=== PATIENT | male | born 1975 | race Caucasian/White ===

== ENCOUNTER 2022-06-22 11:00 | Outpatient (RCR) | payer OTHER, SELFPAY | END 2022-07-11 23:59 | disposition home or self-care (01) | LOC: APT 11:00 | PROVIDERS: Visit Provider Family Medicine | DX: M72.2 Plantar fascial fibromatosis (principal) | CPT/HCPCS: 97110; 97140; 97161 ==

== ENCOUNTER 2022-07-12 06:00 | Outpatient (RCR) | payer OTHER, SELFPAY | END 2022-08-11 23:59 | disposition home or self-care (01) | LOC: APT 06:00 | PROVIDERS: Visit Provider Family Medicine | DX: M72.2 Plantar fascial fibromatosis (principal) | CPT/HCPCS: 97110; 97112; 97140; 97530 ==

== ENCOUNTER 2022-08-12 06:00 | Outpatient (RCR) | payer OTHER, SELFPAY | END 2022-09-08 23:59 | disposition home or self-care (01) | LOC: APT 06:00 | PROVIDERS: Visit Provider Family Medicine | DX: M79.604 Pain in right leg (principal); M79.605 Pain in left leg; M51.36 Other intervertebral disc degeneration, lumbar region | CPT/HCPCS: 97110; 97140; 97161 ==

== ENCOUNTER 2022-08-12 06:00 | Outpatient (RCR) | payer OTHER, SELFPAY | END 2022-09-08 23:59 | disposition home or self-care (01) | LOC: APT 06:00 | PROVIDERS: Visit Provider Family Medicine | DX: M72.2 Plantar fascial fibromatosis (principal) | CPT/HCPCS: 97110; 97112; 97140 ==

== ENCOUNTER 2022-09-09 06:00 | Outpatient (RCR) | payer OTHER, SELFPAY | END 2022-10-09 23:59 | disposition home or self-care (01) | LOC: APT 06:00 | PROVIDERS: Visit Provider Family Medicine | DX: M79.604 Pain in right leg (principal); M79.605 Pain in left leg; M51.36 Other intervertebral disc degeneration, lumbar region | CPT/HCPCS: 97110; 97112; 97140; 97530 ==

== ENCOUNTER 2022-09-09 06:00 | Outpatient (RCR) | payer OTHER, SELFPAY | END 2022-10-09 23:59 | disposition home or self-care (01) | LOC: APT 06:00 | PROVIDERS: Visit Provider Family Medicine | DX: M72.2 Plantar fascial fibromatosis (principal) | CPT/HCPCS: 97110; 97112; 97530 ==

== ENCOUNTER 2022-10-10 06:00 | Outpatient (RCR) | payer OTHER, SELFPAY | END 2022-11-08 23:59 | disposition home or self-care (01) | LOC: APT 06:00 | PROVIDERS: Visit Provider Family Medicine | DX: M72.2 Plantar fascial fibromatosis (principal) | CPT/HCPCS: 97110; 97112; 97140; 97530 ==

== ENCOUNTER 2023-01-04 07:54 | Emergency (ER) | payer OTHER, SELFPAY ==
[2023-01-04] VITALS (58 sets, daily range): BP systolic 111–160; BP diastolic 71–107; PULSE 55–90; RESP 13–31; TEMP 36.8; O2SAT 94–100; BMI 32.5
--- NOTE | 2023-01-04 08:02 | ECG_ITS ---
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 Measurements Intervals [place] Rate: 75 P: 40 WI: 139 QRS: 43 QRSD: 97 T: 39 QT: 353 QTc: 396 Interpretive Statements SINUS RHYTHM No previous ECG available for comparison Electronically Signed On 01-04-2023 17:23:56 CDT by Julián Hsu M.D. [id number]
--- NOTE | 2023-01-04 08:02 | ECG_ITS ---
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 Measurements Intervals [place] Rate: 75 P: 40 MS: 139 QRS: 43 QRSD: 97 T: 39 QT: 353 QTc: 396 Interpretive Statements SINUS RHYTHM No previous ECG available for comparison Electronically Signed On 01-04-2023 17:23:59 CDT by Julián Hsu M.D. [id number] f
--- NOTE | 2023-01-04 08:19 | XR_ITS ---
WS: [id number] Exam: XR chest 1V portable [id number] Date/Time of Exam: 01/04/2023 8:19 AM Reason For Exam: chest pain No priors. Findings: The lungs are clear and fully expanded. Costophrenic angles are sharp. No infiltrates. Bronchovascula r relief appears normal. Cardiac silhouette is unremarkable. Bony elements are intact. XR/XR chest 1V portable [id number] IMPRESSION: Unremarkable chest radiograph.
--- NOTE | 2023-01-04 08:20 | W.ED.CHESTPA ---
HPI - Chest Pain General: Chief Complaint: Chest Pain Stated Complaint: B/P high doesn't feel right Time Seen by Provider: 01/04/23 08:05 Source: patient Mode of arrival: ambulatory History of Present Illness: 47-year-old male presents emergency room with complaints of chest pain. Intermittently had chest pain off and on the last few days he woke up this morning around 2 or 3 AM with chest pain he checked his blood pressure was elevated seems to be a bit more on the right side he could infection with palpation along the right side of the sternum. He did not have any shortness of breath but he was mildly nauseous. Through the rest of the evening it kept him awake and around 6 AM it was still bothering and he came into the emergency room to be evaluated. He has no known history of coronary artery disease does have a history of hypertension. He does smoke he is not diabetic. MD complaint: chest discomfort Onset (ago): day(s) Timing of current episode: episodic Prior episodes: Yes Onset: during rest Pain location: right chest Pain radiation: none Severity: moderate Quality: sharp Exacerbating factors: palpation Associated symptoms: Deny abdominal pain, diaphoresis, dyspnea, fever(s), leg edema, nausea, palpitations, sense of impending doom, syncope or vomiting Treatment prior to arrival: none Review of Systems Const: Denies: fever(s), chills or diaphoresis ENMT: Denies: throat pain, ear or mastoid pain, nasal discharge or nasal congestion Card: Reports: chest pain; Denies: palpitations or syncope Resp: Denies: dyspnea GI: Denies: abdominal pain, nausea or vomiting : Denies: flank pain, dysuria, urinary frequency or urinary urgency Musc: Denies: neck pain or back pain Skin/Breast: Denies: rash or pruritus Physical Exam Const: GENERAL APPEARANCE: cooperative and comfortable ORIENTATION/CONSCIOUSNESS: Yes awake, Yes oriented to person, Yes oriented to place and Yes oriented to time HENMT: COMMON NORMALS: normocephalic, atraumatic and hearing grossly normal bilaterally HEAD & SCALP: normocephalic and atraumatic Chest: OTHER: Tenderness palpation on the right sternal border Resp: COMMON NORMALS: normal respiratory effort, No retractions, No use of accessory muscles and clear to auscultation bilaterally AUSCULTATION: clear to auscultation bilaterally Cardio: COMMON NORMALS: regular rate, regular rhythm and No murmurs present (Cardio) RATE: regular rate RHYTHM: regular rhythm GI: COMMON NORMALS: Soft to palpation and No hepatosplenomegaly present AUSCULTATION: Yes normoactive bowel sounds PALPATION: Yes Soft to palpation, No Tenderness to palpation present (GI), No Guarding due to palpation present (GI) and Yes No hepatosplenomegaly present Extremity: COMMON NORMALS: normal to inspection, capillary refill normal, no clubbing, cyanosis or edema, no calf tenderness and no pedal edema Neuro: SENSORIUM/ORIENTATION: Yes oriented to person, Yes oriented to place and Yes oriented to time Skin: COMMON NORMALS: no rashes or lesions noted GENERAL SKIN EXAM: no rashes or lesions noted Course Vital Signs: Vital signs: Vital Signs Temperature 98.2 F 01/04/23 07:59 Pulse Rate 57 L 01/04/23 11:40 Respiratory Rate 19 H 01/04/23 11:40 Blood Pressure 115/80 01/04/23 11:40 Pulse Oximetry 96 01/04/23 11:40 Oxygen Delivery Me thod Room Air 01/04/23 11:35 MDM - Chest Pain Medical Decision Making EKG cardiac symptoms reviewed no acute changes cardiac enzymes unremarkable. Discharge patient on set up graded exercise test as patient take aspirin daily return if has further problems. No symptoms on arrival no symptoms at time of discharge Medical Records I reviewed the patient's medical records. Lab Data I reviewed the patient's lab results. 01/04/23 08:11 01/04/23 08:44 Radiology Impressions Chest X-Ray 01/04/23 08:19 IMPRESSION: Unremarkable chest radiograph. Laboratory Results WBC 10.1 10^3/uL (4.0-10.0) H 01/04/23 08:11 RBC 4.33 10^6/uL (4.1-5.3) 01/04/23 08:11 Hgb 14.2 g/dL (11.7-16.6) 01/04/23 08:11 Hct 43.0 % (42.0-52.0) 01/04/23 08:11 MCV 99.3 fl (80-94) H 01/04/23 08:11 MCH 32.8 pg (28.0-34.0) 01/04/23 08:11 MCHC 33.0 g/dL (30.0-36.0) 01/04/23 08:11 RDW 12.3 % (12.1-15.1) 01/04/23 08:11 Plt Count 254 10^3/cmm (130-400) 01/04/23 08:11 MPV 10.0 fL (7.4-10.4) 01/04/23 08:11 Neut % (Auto) 60.5 % 01/04/23 08:11 Lymph % (Auto) 28.7 % 01/04/23 08:11 [place] % (Auto) 7.9 % 01/04/23 08:11 Eos % (Auto) 1.9 % 01/04/23 08:11 Baso % (Auto) 0.5 % 01/04/23 08:11 Neut # (Auto) 6.09 10^3/uL (1.8-7.7) 01/04/23 08:11 Lymph # (Auto) 2.9 10^3/uL (0.8-4.8) 01/04/23 08:11 [place] # (Auto) 0.8 10^3/uL (0.2-0.9) 01/04/23 08:11 Eos # (Auto) 0.2 10^3/uL (0.0-0.8) 01/04/23 08:11 Baso # (Auto) 0.1 10^3/uL (0.0-0.1) 01/04/23 08:11 Nucleated RBC % (auto) 0 % 01/04/23 08:11 Nucleated RBCs # 0.0 /100WBC 01/04/23 08:11 Sodium 140 mmol/L (136-145) 01/04/23 08:44 Potassium 3.9 mmol/L (3.5-5.1) 01/04/23 08:44 Chloride 109 mmol/L (98-107) H 01/04/23 08:44 Carbon Dioxide 22 mmol/L (22-29) 01/04/23 08:44 Anion Gap 12.9 (5-19) 01/04/23 08:44 BUN 12 mg/dL (6-20) 01/04/23 08:44 Creatinine 1.0 mg/dL (0.7-1.2) 01/04/23 08:44 GFR Calculation 80.8 mL/min (90-130) L 01/04/23 08:44 Glucose 91 mg/dL (65-115) 01/04/23 08:44 Calculated Osmolality 289 mOsm/kg (285-295) 01/04/23 08:44 Calcium 9.3 mg/dL (8.5-10.5) 01/04/23 08:44 Total Bilirubin 0.2 mg/dL (0.15-1.2) 01/04/23 08:44 AST 19 U/L (0-40) 01/04/23 08:44 ALT 21 U/L (0-41) 01/04/23 08:44 Alkaline Phosphatase 57 U/L (40-130) 01/04/23 08:44 Troponin T Baseline 6 ng/L (0-15) 01/04/23 08:44 Troponin T 120 Minute 6.00 ng/L (0-15) 01/04/23 10:33 Delta Troponin T 0 ABS# (0-10) 01/04/23 10:33 Total Protein 6.4 g/dL (6.6-8.7) L 01/04/23 08:44 Albumin 4.2 g/dL (3.5-5.2) 01/04/23 08:44 Globulin 2.2 g/dL (1.3-4.6) 01/04/23 08:44 Discharge Plan Discharge Patient Disposition: Home Clinical Impression: Atypical chest pain Condition: Stable Prescriptions: New pantoprazole 40 mg tablet,delayed release (DR/EC) 40 mg PO DAILY 28 Days Qty: 30 0RF aspirin 81 mg tablet,delayed release (DR/EC) 81 mg PO DAILY Qty: 30 0RF No Action atorvastatin 10 mg tablet 10 mg PO QPM lisinopril 20 mg tablet 100 mg PO DAILY gabapentin 300 mg capsule 300 mg PO DAILY fenofibrate 160 mg Tablet 160 mg PO DAILY Discharge Orders: Discharge ED (Routine); Ordered 01/04/23 Ordered By: Jp Wetzel Referrals: Renato Garg [Primary Care Provider] - Discharge Diet: Usual diet Discharge Activity: Increase activity as tolerated Patient Instructions: Opioid Safety, Pain Management Activity Restrictions/Additional Instructions: You are seen today for atypical chest pain recommend you take a baby aspirin daily and start pantoprazole 40 mg once daily. Case management make arrangements for an outpatient graded exercise stress test Coding Level of Care Code ED Nitrocellulose Maker for Ty Guzman
[2023-01-04 08:30] LABS: Basophils # 0.1 10^3/uL (0.0-0.1); Basophils % 0.5 %; Eosinophils # 0.2 10^3/uL (0.0-0.8); Eosinophils % 1.9 %; Hemoglobin 14.2 g/dL (11.7-16.6); Lymphocytes # 2.9 10^3/uL (0.8-4.8); Lymphocytes % 28.7 %; Mean Corpuscular Hemoglobin 32.8 pg (28.0-34.0); Mean Corpuscular Volume 99.3 fl (80-94); Monocytes # 0.8 10^3/uL (0.2-0.9); Monocytes % 7.9 %; Neutrophils # 6.09 10^3/uL (1.8-7.7); Neutrophils % 60.5 %; Nucleated Red Blood Cells % 0 %; Platelet Count 254 10^3/cmm (130-400); Red Blood Count 4.33 10^6/uL (4.1-5.3); Red Cell Distribution Width 12.3 % (12.1-15.1); White Blood Count 10.1 10^3/uL (4.0-10.0)
[2023-01-04] MEDS: aspirin 81 mg Chew Tablet 324 MG PO (08:44)
[2023-01-04 09:10] LABS: Alanine Aminotransferase 21 U/L (0-41); Albumin Level 4.2 g/dL (3.5-5.2); Alkaline Phosphatase 57 U/L (40-130); Anion Gap 12.9 (5-19); Aspartate Amino Transferase 19 U/L (0-40); Blood Urea Nitrogen 12 mg/dL (6-20); Calcium 9.3 mg/dL (8.5-10.5); Carbon Dioxide 22 mmol/L (22-29); Chloride 109 mmol/L (98-107); Globulin 2.2 g/dL (1.3-4.6); Glomerular Filtration Rate 80.8 mL/min (90-130); Glucose 91 mg/dL (65-115); Osmolality Calculated 289 mOsm/kg (285-295); Potassium 3.9 mmol/L (3.5-5.1); Sodium 140 mmol/L (136-145); Total Bilirubin 0.2 mg/dL (0.15-1.2); Total Protein 6.4 g/dL (6.6-8.7)
[2023-01-04 09:12] LABS: Troponin(5th) Baseline 6 ng/L (0-15)
--- NOTE | 2023-01-04 10:30 | ECG_ITS ---
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 Measurements Intervals [place] Rate: 73 P: 37 MN: 151 QRS: 40 QRSD: 95 T: 29 QT: 356 QTc: 394 Interpretive Statements SINUS RHYTHM Compared to ECG 01/04/2023 08:02:24 No significant changes Electronically Signed On 01-04-2023 17:26:59 CDT by Julián Hsu M.D. [email or web address] medical [id number]
[2023-01-04 11:17] LABS: Troponin 5 2HR Delta 0 ABS# (0-10)
--- NOTE | 2023-01-04 16:10 | PC.SOCIAL ---
Addendum entered by Nisa Damon 01/22/23 08:13: innovation manager received the following message from centralized scheduling regarding stress test: he was called to scheduled [facility] told us [facility] and [facility] didn?t want it Original Note: Outpatient Graded Exercise Stress test Orders faxed to cent. scheduling at this time.
== END 2023-01-04 13:09 | disposition home or self-care (01) ==
PROVIDERS: Emergency Provider Family Medicine; PCP Family Medicine
DX: R07.89 Other chest pain (principal)
CPT/HCPCS: 71045; 80053; 84484; 85025; 93005; 99285

== ENCOUNTER 2024-02-27 01:49 | Emergency (ER) | payer OTHER, SELFPAY ==
[2024-02-27 02:04] VITALS: BP 155/105; PULSE 77; RESP 20; TEMP 36.6; O2SAT 98; BMI 33.2
--- NOTE | 2024-02-27 02:09 | ECG_ITS ---
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 Measurements Intervals [place] Rate: 68 P: 46 RI: 149 QRS: 19 QRSD: 98 T: 45 QT: 361 QTc: 384 Interpretive Statements SINUS RHYTHM POSSIBLE RIGHT VENTRICULAR CONDUCTION DELAY [RSR (QR) IN V1/V2] Compared to ECG 01/04/2023 10:30:18 No significant changes Electronically Signed On 02-27-2024 20:08:28 CDT by Julián Hsu M.D. [id number]
[2024-02-27 02:49] VITALS: BP 143/94; PULSE 69; O2SAT 97
--- NOTE | 2024-02-27 02:58 | CTR_ITS ---
PROCEDURE INFORMATION: Exam: CT Head Without Contrast Exam date and time: 02/27/2024 3:15 AM Age: 49 years old Clinical indication: Pain; Patient HX: C/O headache TECHNIQUE: Imaging protocol: Computed tomography of the head without contrast. Radiation optimization: All CT scans at this facility use at least one of these dose optimization techniques: automated exposure control; mA and/or kV adjustment per patient size (includes targeted exams where dose is matched to clinical indication); or iterative reconstruction. COMPARISON: No relevant prior studies available. RADIATION DOSE METRICS: Total DLP (mGy-cm): 1120.78 FINDINGS: Brain: Normal. No hemorrhage. Unremarkable white matter. No mass effect. Cerebral ventricles: No ventriculomegaly. Paranasal sinuses: Visualized sinuses are unremarkable. No fluid levels. Mastoid air cells: Visualized mastoid air cells are well aerated. Bones: Unremarkable. No acute fracture. Soft tissues: Unremarkable. CT/CT head wo con* [id number] IMPRESSION: No acute intracranial abnormality.
[2024-02-27] MEDS: metoclopramide 5 mg/mL SDV 2 mL 10 MG IVP (03:06)
[2024-02-27 03:07] LABS: Basophils % 0.6 %; Eosinophils # 0.1 10^3/uL (0.0-0.8); Hematocrit 42.4 % (37-53); Lymphocytes # 2.6 10^3/uL (0.8-4.8); Lymphocytes % 37.2 %; Mean Corpuscular HGB Conc 33.3 g/dL (30-55); Mean Corpuscular Hemoglobin 32.9 pg (27-33); Mean Corpuscular Volume 99.1 fl (82-101); Monocytes # 0.7 10^3/uL (0.2-0.9); Monocytes % 10.5 %; Neutrophils # 3.39 10^3/uL (1.8-7.7); Neutrophils % 49.3 %; Nucleated Red Blood Cells % 0 %; Platelet Count 236 10^3/cmm (157-399); Red Blood Count 4.28 10^6/uL (3.85-5.65); Red Cell Distribution Width 12.3 % (12.1-15.1); White Blood Count 6.88 10^3/uL (3.29-11.43)
[2024-02-27 03:09] VITALS: RESP 20
[2024-02-27] MEDS: morphine 4 mg/mL SDV 1 mL IVP (03:09)
[2024-02-27] MEDS: ketorolac 30 mg/mL INJ IVP (03:10)
[2024-02-27 03:11] LABS: Charge for UA Resulting for Rev
[2024-02-27 03:14] LABS: Bilirubin Urine Negative (Negative); Blood Urine Negative (Negative); Glucose Urine UA Negative (Normal); Ketones Urine Negative (Negative); Leukocyte Esterase Urine Negative (Negative); Nitrate Urine Negative (Negative); Protein Urine Negative (Negative); Specific Gravity, Urine 1.008 (1.005-1.030); Urine Appearance Clear (CLEAR); Urine Color Yellow (Yellow)
[2024-02-27 03:16] LABS: Bacteria Urine None Seen /hpf; Hyaline Casts Urine 0-4 /lpf; RBC Urine 0-2 /hpf (0-2); Squamous Epithelial Cell Urine 0-5 /hpf (0-5); WBC Urine 0-5 /hpf (0-5)
[2024-02-27 03:18] LABS: INR 0.93 (0.8-1.2)
[2024-02-27 03:19] LABS: Partial Thromboplastin Time 28.2 SECONDS (23.9-36.7); Troponin(5th) Baseline < 6 ng/L (0-15)
[2024-02-27 03:22] LABS: Alanine Aminotransferase 32 U/L (0-41); Albumin Level 4.4 g/dL (3.5-5.2); Alkaline Phosphatase 72 U/L (40-130); Chloride 105 mmol/L (98-107); Potassium 4.1 mmol/L (3.5-5.1); Sodium 141 mmol/L (136-145)
[2024-02-27 03:26] LABS: Aspartate Amino Transferase 24 U/L (0-40); Blood Urea Nitrogen 14 mg/dL (6-20); Calcium 9.5 mg/dL (8.5-10.5); Carbon Dioxide 24 mmol/L (22-29); Creatinine Clr Calc Pharmacy 97.9643; Globulin 2.8 g/dL (1.3-4.6); Glomerular Filtration Rate 64.9 mL/min (90-130); Glucose 108 mg/dL (65-115); Osmolality Calculated 291 mOsm/kg (285-295); Total Bilirubin 0.3 mg/dL (0.15-1.2); Total Protein 7.1 g/dL (6.6-8.7)
[2024-02-27 04:32] VITALS: BP 129/92; PULSE 62; O2SAT 97
--- NOTE | 2024-02-27 04:38 | ED_ITS ---
HPI - Headache 2 General: Chief Complaint: Headache Stated Complaint: Headache Time Seen by Provider: 02/27/24 02:22 History of Present Illness: 49-year-old male with a history of hyper tension. He presents with a headache. He states that the last 3 or 4 times he has had intercourse, he has gotten an intense headache. Locates the headache to the crown of his scalp and skull. No vision blindness, no weakness, no trouble with language, no fever. Headache is somewhat improved from prior. He noticed that his blood pressure was high, so he took his lisinopril which she normally takes at night. His blood pressure was still 150 systolic, and he still had a headache 3 hours later, so he took another dose of 10 mg of lisinopril. Related Data Home Medications Medication Instructions Recorded Confirmed atorvastatin 10 mg tablet 10 mg PO QPM 01/04/23 01/04/23 fenofibrate 160 mg tablet 160 mg PO DAILY 01/04/23 01/04/23 gabapentin 300 mg capsule 300 mg PO DAILY 01/04/23 01/04/23 lisinopril 20 mg tablet 100 mg PO DAILY 01/04/23 01/04/23 Previous Rx's Medication Instructions Recorded aspirin 81 mg tablet,delayed 81 mg PO DAILY #30 tabs 01/04/23 release Course 2 Vital Signs: Vital signs: Vital Signs Temperature 98 F 02/27/24 02:04 Pulse Rate 62 02/27/24 04:32 Respiratory Rate 20 H 02/27/24 03:09 Blood Pressure 129/92 02/27/24 04:32 Pulse Oximetry 97 02/27/24 04:32 MDM - Headache Medical Decision Making Head CT is negative. CBC BMP normal. EKG shows a sinus rhythm with a rate of 70. Normal intervals, no ST wave changes. Normal axis. It is timed 0209. Headache is improved. He will be allowed home. Natural history of exertional headache explained to the patient and his . Lab Data 02/27/24 02:27 02/27/24 02:[address] 02/27/24 02:58 IMPRESSION: No acute intracranial abnormality. Laboratory Results WBC 6.88 10^3/uL (3.29-11.43) 02/27/24 02:27 RBC 4.28 10^6/uL (3.85-5.65) 02/27/24 02:27 Hgb 14.10 g/dL (11.27-16.99) 02/27/24 02: Hct 42.4 % (37-53) 02/27/24 02: MCV 99.1 fl (82-101) 02/27/24 02: MCH 32.9 pg (27-33) 02/27/24 02: MCHC 33.3 g/dL (30-55) 02/27/24 02: RDW 12.3 % (12.1-15.1) 02/27/24 02: Plt Count 236 10^3/cmm (157-399) 02/27/24 02: MPV 10.0 fL (7.4-10.4) 02/27/24 02: Neut % (Auto) 49.3 % 02/27/24 02: Lymph % (Auto) 37.2 % 02/27/24 02: [place] % (Auto) 10.5 % 02/27/24 02: Eos % (Auto) 2.0 % 02/27/24 02: Baso % (Auto) 0.6 % 02/27/24 02: Neut # (Auto) 3.39 10^3/uL (1.8-7.7) 02/27/24 02: Lymph # (Auto) 2.6 10^3/uL (0.8-4.8) 02/27/24 02: [place] # (Auto) 0.7 10^3/uL (0.2-0.9) 02/27/24 02: Eos # (Auto) 0.1 10^3/uL (0.0-0.8) 02/27/24 02: Baso # (Auto) 0.0 10^3/uL (0.0-0.1) 02/27/24 02: Nucleated RBC % (auto) 0 % 02/27/24: Nucleated RBCs # 0.0 /100WBC 02/27/24 02: PT 12.80 SECONDS (12.1-14.9) 02/27/24 02: INR 0.93 (0.8-1.2) 02/27/24 02: APTT 28.2 SECONDS (23.9-36.7) 08/18/24 02:27 Sodium 141 mmol/L (136-145) 02/27/24 02:27 Potassium 4.1 mmol/L (3.5-5.1) 02/27/24 02: Chloride 105 mmol/L (98-107) 02/27/24 02:27 Carbon Dioxide 24 mmol/L (22-29) 02/27/24 02: Anion Gap 15.0 (5-19) 02/27/24 02:27 BUN 14 mg/dL (6-20) 02/27/24 02:27 Creatinine 1.2 mg/dL (0.7-1.2) 02/27/24 02: GFR Calculation 64.9 mL/min (90-130) L 02/27/24 02: Glucose 108 mg/dL (65-115) 02/27/24 02: Calculated Osmolality 291 mOsm/kg (285-295) 02/27/24 02: Calcium 9.5 mg/dL (8.5-10.5) 02/27/24 02: Total Bilirubin 0.3 mg/dL (0.15-1.2) 02/27/24 02: AST 24 U/L (0-40) 02/27/24 02: ALT 32 U/L (0-41) 02/27/24 02: Alkaline Phosphatase 72 U/L (40-130) 02/27/24 02: Troponin T Baseline < 6 ng/L (0-15) 02/27/24 02: Total Protein 7.1 g/dL (6.6-8.7) 02/27/24 02: Albumin 4.4 g/dL (3.5-5.2) 02/27/24 02: Globulin 2.8 g/dL (1.3-4.6) 02/27/24 02:27 Urine Color Yellow (Yellow) 02/27/24 02: Urine Appearance Clear (CLEAR) 02/27/24 02: Urine pH 6.0 (5-7) 02/27/24 02: Ur Specific [place] 1.008 (1.005-1.030) 02/27/24 02: Urine Protein Negative (Negative) 02/27/24 02: Urine Glucose (UA) Negative (Normal) 02/27/24 02:27 Urine Ketones Negative (Negative) 02/27/24 02:27 Urine Blood Negative (Negative) 02/27/24 02:27 Urine Nitrate Negative (Negative) 02/27/24 02:27 Urine Bilirubin Negative (Negative) 02/27/24 02:27 Urine Urobilinogen 1.0 mg/dL (Negative) 02/27/24 02:27 Ur Leukocyte Esterase Negative (Negative) 02/27/24 02:27 Urine RBC 0-2 /hpf (0-2) 02/27/24 02:27 Urine WBC 0-5 /hpf (0-5) 02/27/24 02:27 Ur Squamous Epith Cells 0-5 /hpf (0-5) 02/27/24 02:27 Amorphous Sediment Not Reportable 02/27/24 02:27 Urine Bacteria None seen /hpf (NONE) 02/27/24 02:27 Hyaline Casts 0-4 /lpf H 02/27/24 02:27 All radiology interpretation(s) finalized by discharge Discharge Plan Discharge Patient Disposition: Home Clinical Impression: Exertional headache Condition: Stable Prescriptions: No Action atorvastatin 10 mg tablet 10 mg PO QPM lisinopril 20 mg tablet 100 mg PO DAILY gabapentin 300 mg capsule 300 mg PO DAILY fenofibrate 160 mg Tablet 160 mg PO DAILY aspirin 81 mg tablet,delayed release (DR/EC) 81 mg PO DAILY Qty: 30 0RF Discharge Orders: Discharge ED (Routine); Ordered 02/27/24 Ordered By: Nikita Buckner Referrals: Neha Miranda MD [Primary Care Provider] - 4-7 days Patient Instructions: Acute Headache (ED), Opioid Safety, Pain Management Activity Restrictions/Additional Instructions: Increase your lisinopril dosage to 20 mg daily. Take your blood pressure twice daily. Report numbers to your doctor. Dose adjustments can be made from there. Return for worsening headache, mental status changes, fever, vision changes, weakness, trouble with language, other concerning symptoms. See your doctor this week as scheduled. Coding Level of Care Code ED Blood Donor Recruiter for Ty Guzman
== END 2024-02-27 04:30 | disposition home or self-care (01) ==
PROVIDERS: Emergency Provider Emergency Medicine; PCP Family Medicine
DX: G44.84 Primary exertional headache (principal); Z79.82 Long term (current) use of aspirin
CPT/HCPCS: 70450; 80053; 81003; 81015; 84484; 85025; 85610; 85730; 93005; 96374; 96375; 99285; J1885; J2270; J2765

== ENCOUNTER 2024-04-12 08:48 | Outpatient (CLI) | payer OTHER, SELFPAY ==
--- NOTE | 2024-04-12 08:51 | US_ITS ---
WS: [id number] RIGHT UPPER QUADRANT ULTRASOUND HISTORY: EPIGASTRIC PAIN POSTPRANDIL COMPARISON: None available. Liver: 18.2 cm in length. Slightly enlarged liver. No mass or bile duct dilatation. Portal Vein: Normal hepatopetal flow with monophasic waveform. Gallbladder: Normally distended gallbladder with no stones or wall thickening. CBD: 0.2 cm Pancreas: Completely obscured by bowel gas. Right kidney: 11.4 cm in length. Normal size and echogenicity. No hydronephrosis or mass. Aorta and IVC: Unremarkable abdominal aorta and IVC. No ascites. US/US abdomen limited [id number] IMPRESSION: 1. Normal gallbladder. 2. Mild hepatic enlargement.
== END 2024-04-12 08:49 | disposition home or self-care (01) ==
LOC: RAD 08:49
PROVIDERS: PCP Family Medicine; Visit Provider Family Medicine
DX: R10.13 Epigastric pain (principal); R16.0 Hepatomegaly, not elsewhere classified; Z01.89 Encounter for other specified special examinations
CPT/HCPCS: 76705